=== PATIENT | female | born 1970 | race African-American/Black ===

== ENCOUNTER 2019-05-15 16:00 | Emergency (ER) | payer BC ==
[~2019-05-15] VITALS: Ht 165.1 cm; Wt 76.0 kg
[2019-05-15 16:55] LABS: BASOPHILS % 0.7 % (0.0-2.0); EOSINOPHILS % 1.7 % (0.0-5.0); HEMATOCRIT. 40.3 % (36.0-48.0); HEMOGLOBIN. 13.6 g/dL (12.0-16.0); LYMPHOCYTES % 27.9 % (20.0-50.0); MEAN CORPUSCULAR HEMOGLOBIN 30.9 pg (28.0-32.0); MEAN CORPUSCULAR VOLUME 91.8 fL (81.0-99.0); MEAN PLATELET VOLUME 9.1 fl (7.4-10.4); MONOCYTES % 6.2 % (2.0-8.0); NEUTROPHILS % 63.5 % (40.0-76.0); PLATELET 234 x1000/uL (130-400); RED BLOOD CELL COUNT 4.39 mill/uL (4.2-5.4); RED CELL DISTRIBUTION WIDTH 15.9 % (11.6-14.6)
[2019-05-15 17:01] LABS: CHLORIDE 104 mEq/L (98-107)
[2019-05-15 17:05] LABS: ETHANOL BLOOD < 10 mg/dL
[2019-05-15 17:08] LABS: LDL CHOLESTEROL 159 mg/dL (5-100)
[2019-05-15 17:10] LABS: CREATINE KINASE 48 IU/L (26-192)
[2019-05-15 17:15] LABS: D-DIMER 0.35 mg/L FEU (<0.50); INR 0.9; PARTIAL THROMBOPLASTIN TIME 32.2 sec (23.4-31.0)
[2019-05-15] MEDS ORDERED: IOHEXOL-350 100 ML BOTTLE ONE ×2 (17:29→22:30)
[2019-05-15 17:47] LABS: CLARITY URINE CLEAR (CLEAR); COLOR URINE YELLOW (YELLOW); KETONES URINE NEGATIVE (NEGATIVE); LEUKOCYTE ESTERASE URINE NEGATIVE (NEGATIVE); NITRITE URINE NEGATIVE (NEGATIVE); OCCULT BLOOD URINE NEGATIVE (NEGATIVE); PROTEIN URINE 1+ (NEGATIVE); SPECIFIC GRAVITY URINE 1.006 (1.005-1.030); UROBILINOGEN URINE 0.2 E.U./dL (0.2-1.0)
[2019-05-15 18:00] LABS: *AMPHETAMINES SCREEN URINE NEGATIVE (NEGATIVE); CANNABINOID URINE SCREEN PRESUMTIVE POSITIVE (NEGATIVE); METHADONE URINE SCREEN NEGATIVE (NEGATIVE); OPIATES URINE SCREEN NEGATIVE (NEGATIVE); PHENCYCLIDINE URINE SCREEN NEGATIVE (NEGATIVE)
[2019-05-15 18:01] LABS: *BARBITURATES SCREEN URINE NEGATIVE (NEGATIVE); *BENZODIAZEPINES SCREEN URINE NEGATIVE (NEGATIVE); *COCAINE SCREEN URINE NEGATIVE (NEGATIVE)
[2019-05-15] MEDS ORDERED: ASPIRIN 81MG TABLET PO ONE (18:45)
[2019-05-16] VITALS: BP 148/90
== END 2019-05-16 00:11 | disposition short-term general hospital (02) ==
LOC: ER 16:00
DX: I63.9 Cerebral infarction, unspecified (principal); I10 Essential (primary) hypertension; Z88.0 Allergy status to penicillin
CPT/HCPCS: 36415; 70450; 70496; 71045; 80053; 80305; 80320; 81003; 82550; 82962; 83690; 83721; 84484; 85025; 85379; 85610; 85730; 93005; 99291; Q9967; Z7610; G0480

== ENCOUNTER 2020-12-17 12:26 | Emergency (ER) | payer BC ==
[~2020-12-17] VITALS: Ht 165.1 cm; Wt 66.0 kg
[2020-12-17 12:42] VITALS: BP 142/90
[2020-12-17] MEDS ORDERED: ASPI-1497 PO (12:49)
[2020-12-17] MEDS ORDERED: ATOR-2 PO (12:49)
[2020-12-17] MEDS ORDERED: CHLO25TA2 PO (12:49)
[2020-12-17] MEDS ORDERED: CLOP-31 PO (12:49)
[2020-12-17] MEDS ORDERED: LOSA100T32 PO (12:49)
== END 2020-12-17 15:53 | disposition left against medical advice (07) ==
LOC: ER 12:26
DX: Z53.21 Procedure and treatment not carried out due to patient leaving prior to being seen by health care provider (principal)

== ENCOUNTER 2021-11-27 10:20 | Emergency (ER) | payer BC ==
[~2021-11-27] VITALS: Ht 165.1 cm; Wt 66.0 kg
[~2021-11-27 10:20] MED LIST: ASPI-1497 PO; ATOR-2 PO; CHLO25TA2 PO; CLOP-31 PO; LOSA100T32 PO
[2021-11-27] MEDS ORDERED: HYDROCODONE/ACETAMINOPHEN 5/325MG TABLET PO ONE (12:30)
[2021-11-27 12:46] VITALS: BP 140/71
== END 2021-11-27 14:23 | disposition home or self-care (01) ==
LOC: ER 10:20
DX: S00.03XA Contusion of scalp, initial encounter (principal); W18.2XXA Fall in (into) shower or empty bathtub, initial encounter; Y93.E1 Activity, personal bathing and showering; Y92.012 Bathroom of single-family (private) house as the place of occurrence of the external cause
CPT/HCPCS: 81025; 99284